=== PATIENT | female | born 1960 | race Caucasian/White ===

== ENCOUNTER 2020-03-09 06:54 | Emergency (ER) | payer SELFPAY ==
--- NOTE | 2020-03-09 06:59 | W.ED.ABDPA2 ---
HPI - Abdominal Pain General: Stated Complaint: N/V Time Seen by Provider: 03/09/20 06:57 Source: patient Mode of arrival: ambulatory Limitations: no limitations Coding Level of Care Code ED [employer] [facility] Worker for Praveen Conde
--- NOTE | 2020-03-09 07:04 | CTR_ITS ---
PROCEDURE INFORMATION: Exam: CT Abdomen And Pelvis Without Contrast Exam date and time: 03/09/2020 7:11 AM Age: 59 years old Clinical indication: Abdominal pain; Patient HX: PT states stent placed in sept, pain began this am with no current trauma, PT has a HX of cervical CA. N/v; Additional info: Stent and pain TECHNIQUE: Imaging protocol: Computed tomography of the abdomen and pelvis without contrast. Radiation optimization: All CT scans at this facility use at least one of these dose optimization techniques: automated exposure control; mA and/or kV adjustment per patient size (includes targeted exams where dose is matched to clinical indication); or iterative reconstruction. COMPARISON: No relevant prior studies available. RADIATION DOSE METRICS: Total DLP (mGy-cm): 169.71 FINDINGS: Liver: Normal. No mass. Gallbladder and bile ducts: Hyperdense or partially calcific sludge within the gallbladder versus layering of small cholelithiasis. Pancreas: Normal. No ductal dilation. Spleen: Normal. No splenomegaly. Adrenal glands: Nodule right adrenal gland measures 1.6 cm possibly consistent with benign adenoma. Thickening left adrenal gland. Kidneys and ureters: Significantly diminutive size of the left kidney. There is maintenance of right renal size. Bilateral hydronephrosis greatest on the right. Mild proximal to mid left ureterectasis. Prominent right ureterectasis involving the majority of the right ureter with partial sparing of the distal right ureter. A right ureteral stent is in position with the proximal pigtail at the renal sinus and the distal pigtail within the urinary bladder. Soft tissue stranding surrounding the margin of dilated right ureter could reflect edema, inflammation or infectious etiology. Mild stranding at the margin of the right renal cortex. Stomach and bowel: Colonic diverticulosis. Wall thickening of the a segment of the proximal transverse colon. Appendix: No evidence of appendicitis. The appendix is not visualized. Intraperitoneal space: Unremarkable. No free air. No significant fluid collection. Vasculature: Calcified abdominal aorta. Lymph nodes: Unremarkable. No enlarged lymph nodes. Urinary bladder: Unremarkable as visualized. Reproductive: Unremarkable as visualized. Bones/joints: Degenerative change of the spine. Soft tissues: Nonspecific soft tissue stranding in the pelvis mesentery. Lungs: Focal partially included rounded opacity in the right middle lobe. CT/CT abdomen pelvis wo con [id number] IMPRESSION: 1. Bilateral hydronephrosis and ureterectasis with greatest involvement on the right. 2. Right ureteral stent. 3. Right Ladi ureteral soft tissue stranding and surrounding the right kidney which could reflect edema or infectious or inflammatory process. 4. Limited examination by the lack of contrast media. 5. Colonic diverticulosis. 6. Right adrenal gland most likely reflecting benign adenoma. 7. Hyperdense or calcific sludge versus minimal tiny calculi within the gallbladder posteriorly. 8. Focal partially visualized pleuroparenchymal opacity of right middle lobe. 9. Wall thickening proximal transverse colon suggesting nonspecific colitis. COMMENTS: Consistent with the [employer]'s Incidental Findings Committee white paper (J Am Stephania Radiol 2017): For any incidental adrenal lesion greater than 1 cm but less than 4 cm classified in this report as benign, likely benign, or containing fat (including classification as an adenoma or myelolipoma), no follow-up imaging is recommended per consensus recommendations based on imaging criteria. Further lab evaluation could be pursued if warranted based on clinical findings. Radiation Dose CTDIVOL = (mGy): DLP = 169.71 (mGy-cm)
[2020-03-09 07:06] VITALS: BP 162/117; PULSE 123; RESP 22; TEMP 36.7; O2SAT 100; BMI 16.8
[2020-03-09 07:16] VITALS: PULSE 93; RESP 20; O2SAT 100
[2020-03-09 07:20] VITALS: RESP 20
[2020-03-09] MEDS: ondansetron 2 mg/ML SDV 2 mL 4 MG IVP (07:20)
[2020-03-09] MEDS: HYDROmorphone 1 mg/mL INJ 1 mL IVP (07:20)
[2020-03-09] MEDS: sodium chloride 0.9% 1,000 ML 999 ML IV (07:20)
[2020-03-09 07:32] VITALS: BP 130/94; PULSE 96; RESP 18; O2SAT 100
--- NOTE | 2020-03-09 07:36 | ED_ITS ---
HPI - Female Genitourinary General: Chief complaint: Urogenital-Female Stated complaint: N/V Time Seen by Provider: 03/09/20 06:57 Source: patient Mode of arrival: ambulatory Limitations: no limitations History of Present Illness: HPI Narrative: 59-year-old female has a history of cervical cancer. Patient had a nephrostomy tube to her right kidney for some period of time and had a removed last week and had a stent placed. She states she got out of the hospital in [place] on Tuesday. She has had kidney issues and states she only has 10% function of her kidney. She states today she has been having right-sided flank pain along with nausea and vomiting. States the pain is sharp in nature and rates it a 8 out of 10. Denies any worsening improving factors. Associated symptoms: Reports abdominal pain and nausea; Deny headache(s) Review of Systems Const: Denies: fever(s), chills, body aches or change in appetite Eyes: Denies: blurry vision or eye discomfort ENMT: Denies: throat pain or dental pain Card: Denies: chest pain Resp: Denies: dyspnea GI: Reports: abdominal pain, nausea and vomiting : Denies: dysuria Musc: Denies: neck pain or back pain Skin/Breast: Denies: rash Neuro: Denies: headache(s) Psych: Denies: depression Juan/Lymph: Denies: easy bruising All/Imm: Denies: urticaria Physical Exam Const: COMMON NORMALS: patient oriented x3 GENERAL APPEARANCE: in distress and ill appearing HENMT: COMMON NORMALS: normocephalic and atraumatic HEAD & SCALP: normocephalic and atraumatic Eye: COMMON NORMALS: Equal, round and reactive pupils present and EOMs intact bilaterally PUPIL: Yes Equal, round and reactive pupils present Neck/C-Spine: COMMON NORMALS: full ROM and supple Chest: COMMONS NORMALS: normal inspection of the chest and normal palpation of entire chest wall Resp: COMMON NORMALS: normal respiratory effort, No retractions, No use of accessory muscles and clear to auscultation bilaterally AUSCULTATION: clear to auscultation bilaterally Cardio: COMMON NORMALS: regular rate, regular rhythm and No murmurs present (Cardio) RATE: regular rate RHYTHM: regular rhythm GI: COMMON NORMALS: Normal to inspection, nondistended, normoactive bowel sounds present, Soft to palpation, non-tender and no masses PALPATION: Yes Soft to palpation Extremity: COMMON NORMALS: normal to inspection and full ROM Neuro: COMMON NORMALS: patient oriented x3, moves all extremities and no focal motor deficits Psych: COMMON NORMALS: mental status grossly normal, Normal thought process present and cooperative THOUGHT PROCESS: Normal thought process present Skin: COMMON NORMALS: no rashes or lesions noted and no wounds GENERAL SKIN EXAM: no rashes or lesions noted Course Vital Signs: Vital signs: Vital Signs Temperature 98.1 F 03/09/20 07:06 Pulse Rate 96 03/09/20 07:32 Respiratory Rate 18 03/09/20 07:32 Blood Pressure 130/94 03/09/20 07:32 Pulse Oximetry 100 03/09/20 07:32 MDM - Female MDM Narrative: Medical decision making narrative: [place] presents with abdominal pain and vomiting. She feels much improved here. CT did show or hydronephrosis likely chronic. Stent is not blocked. Patient is able to urinate here. She is currently on antibiotics and is to continue with antibiotics. I did inform her of the chest x-ray findings of possible mass. She states she is getting her PCP when she goes to [place] next week and is following up with urology as well. Will prescribe her pain meds and nausea meds and she is to return if worsening. She understands and agrees to the plan. Lab Data: Labs: Lab Results 03/09/20 03/09/20 03/09/20 Range/Units 07:18 07:18 08:16 WBC Cancelled 8.0 Corrected WBC Cancelled RBC Cancelled 2.65 L Hgb Cancelled 7.8 L Hct Cancelled 25.4 L MCV Cancelled 95.8 MCH Cancelled 29.4 MCHC Cancelled 30.7 RDW Cancelled 17.1 H Plt Count Cancelled 174 MPV Cancelled 8.9 Gran % Cancelled Neut % (Auto) Cancelled 88.8 Lymph % (Auto) Cancelled 3.6 [place] % (Auto) Cancelled 6.3 Eos % (Auto) Cancelled 0.3 Baso % (Auto) Cancelled 0.4 Neut # (Auto) Cancelled 7.07 Lymph # (Auto) Cancelled 0.3 L [place] # (Auto) Cancelled 0.5 Eos # (Auto) Cancelled 0.0 Baso # (Auto) Cancelled 0.0 Absolute Gran (aut o) Cancelled Nucleated RBC % (a uto) Cancelled 0 Nucleated RBCs # Cancelled 0.0 Sodium 142 (136-145) mmol/L Potassium 4.1 (3.5-5.1) mmol/L Chloride 107 (98-107) mmol/L Carbon Dioxide 18 L (22-29) mmol/L Anion Gap 21.1 H (5-19) BUN 26 H (8-23) mg/dL Creatinine 1.3 H (0.5-0.9) mg/dL GFR Calculation 41.6 L (90-130) mL/min Glucose 156 H (65-115) mg/dL Calculated Osmolal ity 302 H (285-295) mOsm/k g Calcium 10.1 (8.5-10.5) mg/dL Total Bilirubin 0.2 (0.15-1.2) mg/dL AST 24 (0-32) U/L ALT 24 (0-33) U/L Alkaline Phosphata se 88 (35-105) IU/L Total Protein 7.3 (6.6-8.7) g/dL Albumin 4.1 (3.5-5.2) g/dL Globulin 3.2 (1.3-4.6) g/dL Lipase 20 (13-60) U/L Urine Color (Yellow) Urine Appearance (CLEAR) Urine pH (5-7) Ur Specific Gravit y (1.005-1.030) Urine Protein (Negative) Urine Glucose (UA) (Normal) Urine Ketones (Negative) Urine Blood (Negative) Urine Nitrate (Negative) Urine Bilirubin (Negative) Urine Urobilinogen (Negative) mg/dL Ur Leukocyte Nina ase (Negative) Urine RBC (0-2) /hpf Urine WBC (0-5) /hpf Ur Squamous Epith Cells (0-5) /hpf Amorphous Sediment Urine Bacteria (NONE) /hpf 03/09/20 Range/Units 08:22 WBC Corrected WBC RBC Hgb Hct MCV MCH MCHC RDW Plt Count MPV Gran % Neut % (Auto) Lymph % (Auto) [place] % (Auto) Eos % (Auto) Baso % (Auto) Neut # (Auto) Lymph # (Auto) [place] # (Auto) Eos # (Auto) Baso # (Auto) Absolute Gran (aut o) Nucleated RBC % (a uto) Nucleated RBCs # Sodium (136-145) mmol/L Potassium (3.5-5.1) mmol/L Chloride (98-107) mmol/L Carbon Dioxide (22-29) mmol/L Anion Gap (5-19) BUN (8-23) mg/dL Creatinine (0.5-0.9) mg/dL GFR Calculation (90-130) mL/min Glucose (65-115) mg/dL Calculated Osmolal ity (285-295) mOsm/k g Calcium (8.5-10.5) mg/dL Total Bilirubin (0.15-1.2) mg/dL AST (0-32) U/L ALT (0-33) U/L Alkaline Phosphata se (35-105) IU/L Total Protein (6.6-8.7) g/dL Albumin (3.5-5.2) g/dL Globulin (1.3-4.6) g/dL Lipase (13-60) U/L Urine Color Dark yellow (Yellow) Urine Appearance Cloudy (CLEAR) Urine pH 5 (5-7) Ur Specific Gravit y 1.025 (1.005-1.030) Urine Protein 3+ H (Negative) Urine Glucose (UA) Norm (Normal) Urine Ketones Negative (Negative) Urine Blood 3+ H (Negative) Urine Nitrate Negative (Negative) Urine Bilirubin Neg (Negative) Urine Urobilinogen Norm (Negative) mg/dL Ur Leukocyte Nina ase Trace H (Negative) Urine RBC >100 H (0-2) /hpf Urine WBC 10-15 H (0-5) /hpf Ur Squamous Epith Cells None (0-5) /hpf Amorphous Sediment Not Reportable Urine Bacteria 1+ H (NONE) /hpf Imaging Data: CT Abd/Pel: Radiologist's impression: [address] [address] [address] Scan Report Signed Patient: DARLYN ALTAMIRANO Unit #: [id number] : 1960 Age/Sex: 59 / F ADM Date: 03/09/20 Loc: ER Room/Bed: Attending Dr: Ordering Provider/Ordering MD: Leonarda Brandon NP Date of Service: 11/15/20 Procedure(s): CT abdomen pelvis wo con [id number] Accession Number(s): [id number] Report Number: [id number] PROCEDURE INFORMATION: Exam: CT Abdomen And Pelvis Without Contrast Exam date and time: 03/09/2020 7:11 AM Age: 59 years old Clinical indication: Abdominal pain; Patient HX: PT states stent placed in sept, pain began this am with no current trauma, PT has a HX of cervical CA. N/v; Additional info: Stent and pain TECHNIQUE: Imaging protocol: Computed tomography of the abdomen and pelvis without contrast. Radiation optimization: All CT scans at this facility use at least one of these dose optimization techniques: automated exposure control; mA and/or kV adjustment per patient size (includes targeted exams where dose is matched to clinical indication); or iterative reconstruction. COMPARISON: No relevant prior studies available. RADIATION DOSE METRICS: Total DLP (mGy-cm): 169.71 FINDINGS: Liver: Normal. No mass. Gallbladder and bile ducts: Hyperdense or partially calcific sludge within the gallbladder versus layering of small cholelithiasis. Pancreas: Normal. No ductal dilation. Spleen: Normal. No splenomegaly. Adrenal glands: Nodule right adrenal gland measures 1.6 cm possibly consistent with benign adenoma. Thickening left adrenal gland. Kidneys and ureters: Significantly diminutive size of the left kidney. There is maintenance of right renal size. Bilateral hydronephrosis greatest on the right. Mild proximal to mid left ureterectasis. Prominent right ureterectasis involving the majority of the right ureter with partial sparing of the distal right ureter. A right ureteral stent is in position with the proximal pigtail at the renal sinus and the distal pigtail within the urinary bladder. Soft tissue stranding surrounding the margin of dilated right ureter could reflect edema, inflammation or infectious etiology. Mild stranding at the margin of the right renal cortex. Stomach and bowel: Colonic diverticulosis. Wall thickening of the a segment of the proximal transverse colon. Appendix: No evidence of appendicitis. The appendix is not visualized. Intraperitoneal space: Unremarkable. No free air. No significant fluid collection. Vasculature: Calcified abdominal aorta. Lymph nodes: Unremarkable. No enlarged lymph nodes. Urinary bladder: Unremarkable as visualized. Reproductive: Unremarkable as visualized. Bones/joints: Degenerative change of the spine. Soft tissues: Nonspecific soft tissue stranding in the pelvis mesentery. Lungs: Focal partially included rounded opacity in the right middle lobe. CT/CT abdomen pelvis wo con [id number] IMPRESSION: 1. Bilateral hydronephrosis and ureterectasis with greatest involvement on the right. 2. Right ureteral stent. 3. Right Ladi ureteral soft tissue stranding and surrounding the right kidney which could reflect edema or infectious or inflammatory process. 4. Limited examination by the lack of contrast media. 5. Colonic diverticulosis. 6. Right adrenal gland most likely reflecting benign adenoma. 7. Hyperdense or calcific sludge versus minimal tiny calculi within the gallbladder posteriorly. 8. Focal partially visualized pleuroparenchymal opacity of right middle lobe. 9. Wall thickening proximal transverse colon suggesting nonspecific colitis. COMMENTS: Consistent with the [employer]'s Incidental Findings Committee white paper (J Am Stephania Radiol 2017): For any incidental adrenal lesion greater than 1 cm but less than 4 cm classified in this report as benign, likely benign, or containing fat (including classification as an adenoma or myelolipoma), no follow-up imaging is recommended per consensus recommendations based on imaging criteria. Further lab evaluation could be pursued if warranted based on clinical findings. Radiation Dose CTDIVOL = (mGy): DLP = 169.71 (mGy-cm) Discharge Plan Discharge Patient Disposition: Home Clinical Impression: Abdominal pain Qualifiers: Abdominal location: generalized Qualified Code(s): R10.84 - Generalized abdominal pain Vomiting Qualifiers: Vomiting type: unspecified Condition: Stable Prescriptions: [place] 5-325 mg tablet 1 tab PO Q6H PRN (Reason: pain) Qty: 14 RF: 0 Reglan 10 mg tablet 10 mg PO Q6H PRN (Reason: nausea and vomiting) Qty: 20 RF: 0 Discharge Orders: Discharge Order (Routine); Ordered 03/09/20 Ordered By: Taj Perez Discharge Diet: Advance as tolerated Discharge Activity: Resume usual activity Patient Instructions: Abdominal Pain (ED) Coding Level of Care Code ED Correction Officer Head for Praveen Fwd Exam Comprehensive
[2020-03-09] MEDS: diphenhydrAMINE 50 mg/mL SDV 1mL 25 MG IVP (07:41)
[2020-03-09] MEDS: metoclopramide 5 mg/mL SDV 2 mL IVP (07:43)
[2020-03-09 07:49] LABS: Alanine Aminotransferase 24 U/L (0-33); Albumin Level 4.1 g/dL (3.5-5.2); Alkaline Phosphatase 88 IU/L (35-105); Aspartate Amino Transferase 24 U/L (0-32); Blood Urea Nitrogen 26 mg/dL (8-23); Calcium 10.1 mg/dL (8.5-10.5); Carbon Dioxide 18 mmol/L (22-29); Chloride 107 mmol/L (98-107); Globulin 3.2 g/dL (1.3-4.6); Glomerular Filtration Rate 41.6 mL/min (90-130); Glucose 156 mg/dL (65-115); Lipase 20 U/L (13-60); Osmolality Calculated 302 mOsm/kg (285-295); Sodium 142 mmol/L (136-145); Total Bilirubin 0.2 mg/dL (0.15-1.2); Total Protein 7.3 g/dL (6.6-8.7)
[2020-03-09 08:12] LABS: Anion Gap 21.1 (5-19)
[2020-03-09 08:13] LABS: Potassium 4.1 mmol/L (3.5-5.1)
--- NOTE | 2020-03-09 08:20 | XRR_ITS ---
PROCEDURE INFORMATION: Exam: XR Chest, 1 View Exam date and time: 03/09/2020 8:21 AM Age: 59 years old Clinical indication: Chest pain; Type not specified; Prior surgery; Surgery date: <1 month; Surgery type: Right renal stent; Patient HX: Recent history of pneumonia; Additional info: Cp TECHNIQUE: Imaging protocol: XR of the chest Views: 1 view. COMPARISON: No relevant prior studies available. FINDINGS: Tubes, catheters and devices: A right ureteral stent visualized. Lungs: See Vasculature finding. Pleural space: Right apical pleural thickening. Heart/Mediastinum: Unremarkable. No cardiomegaly. Vasculature: Tortuous thoracic aorta. Slight asymmetric accentuation of right mark or right hilar vasculature centrally. There is a right perihilar mid lung opacity partially rounded in configuration measuring 3.2 by 3.7 cm. Bones/joints: Unremarkable. Intraperitoneal space: Small calcification or hyperdensity in the lateral right abdomen. XR/XR chest 1V portable [id number] IMPRESSION: 1. Right perihilar mid lung partially rounded opacity. The differential could include rounded atelectasis, rounded pneumonia or mass. CT chest or further follow-up to ensure resolution is recommended. 2. Asymmetric accentuated vasculature at the right mark. 3. Right apical pleural thickening.
[2020-03-09 08:21] LABS: Basophils % 0.4 %; Eosinophils % 0.3 %; Hematocrit 25.4 % (37.0-47.0); Hemoglobin 7.8 g/dL (11.5-15.3); Lymphocytes # 0.3 10^3/uL (0.8-4.8); Lymphocytes % 3.6 %; Mean Corpuscular HGB Conc 30.7 g/dL (30.0-36.0); Mean Corpuscular Hemoglobin 29.4 pg (28.0-34.0); Mean Corpuscular Volume 95.8 fL (81-99); Mean Platelet Volume 8.9 fL (7.4-10.4); Monocytes # 0.5 10^3/uL (0.2-0.9); Monocytes % 6.3 %; Neutrophils # 7.07 10^3/uL (1.8-7.7); Neutrophils % 88.8 %; Nucleated Red Blood Cells % 0 %; Platelet Count 174 10^3/cmm (130-400); Red Blood Count 2.65 10^6/uL (4.1-5.3); Red Cell Distribution Width 17.1 % (12.1-15.1)
[2020-03-09 08:50] LABS: Bilirubin Urine Neg (Negative); Blood Urine 3+ (Negative); Glucose Urine UA Norm (Normal); Ketones Urine Negative (Negative); Nitrate Urine Negative (Negative); Protein Urine 3+ (Negative); Specific Gravity, Urine 1.025 (1.005-1.030); Urine Appearance Cloudy (CLEAR); Urine Color Dark Yellow (Yellow); Urobilinogen Urine Norm (Negative); pH Urine 5 (5-7)
[2020-03-09 08:51] LABS: Add Urine Microscopic? YES; Leukocyte Esterase Urine Trace (Negative)
[2020-03-09 08:57] LABS: Add Urine Culture? Yes; Bacteria Urine 1+ /hpf; RBC Urine >100 /hpf (0-2)
[2020-03-09 09:22] VITALS: BP 128/81; PULSE 85; RESP 21; O2SAT 96
== END 2020-03-09 09:24 | disposition home or self-care (01) ==
PROVIDERS: Registered Nurse; Emergency Provider Emergency Medicine
DX: R10.84 Generalized abdominal pain (principal); R11.10 Vomiting, unspecified
CPT/HCPCS: 12345; 71045; 74176; 80053; 81001; 83690; 85025; 87086; 96361; 96374; 96375; 99282; 99283; J1170; J1200; J2405; J2765; J7030